=== PATIENT | female | born 1960 | race Caucasian/White ===

== ENCOUNTER 2019-01-19 21:26 | Inpatient (IN) | payer MEDICARE ==
[~2019-01-19] VITALS: Ht 165.1 cm; Wt 86.7 kg
[2019-01-19] MEDS ORDERED: NALOXONE 0.4 MG/ML VIAL. ONE (21:43)
[2019-01-19 22:02] LABS: BASO % 0 % (0-3); EOS # 0.5 x10^3/uL (0.0-0.7); EOS % 4 % (0-3); HEMATOCRIT 39.3 % (36.0-47.0); HEMOGLOBIN 13.3 g/dL (12.0-15.5); LYMPH # 1.4 x10^3/uL (1.0-4.8); LYMPH % 12 % (24-48); MEAN CORPUSCULAR HEMOGLOBIN 31 pg (25-35); MEAN CORPUSCULAR HGB CONC 34 g/dL (31-37); MEAN CORPUSCULAR VOLUME 91 fL (79-100); MONO # 1.2 x10^3/uL (0.0-1.1); MONO % 10 % (0-9); NEUT # 8.4 x10^3uL (1.8-7.7); NEUT % 74 % (31-73); PLATELET COUNT 284 x10^3/uL (140-400); RED BLOOD COUNT 4.33 x10^6/uL (3.50-5.40); RED CELL DISTRIBUTION WIDTH 13.2 % (11.5-14.5); WHITE BLOOD COUNT 11.4 x10^3/uL (4.0-11.0)
[2019-01-19 22:14] LABS: CALCIUM 9.2 mg/dL (8.5-10.1); CREATININE 1.1 mg/dL (0.6-1.0); GFR 50.7; POTASSIUM 3.4 mmol/L (3.5-5.1)
[2019-01-19 22:19] LABS: ALBUMIN 3.5 g/dL (3.4-5.0); ALBUMIN/GLOBULIN RATIO 0.8 (1.0-1.7); TOTAL BILIRUBIN 0.3 mg/dL (0.2-1.0); TOTAL PROTEIN 7.8 g/dL (6.4-8.2)
[2019-01-19] MEDS ORDERED: ONDANSETRON PF 4 MG/2 ML VIAL. IV ONE (22:30)
--- NOTE | 2019-01-19 22:43 | RAD ---
CT scan of the head without contrast 01/19/2019 Clinical History: Fall with head injury. Technique: Unenhanced, contiguous, 5 mm axial sections were obtained through the head. One or more of the following individualized dose reduction techniques were utilized for this study: 1. Automated exposure control. 2. Adjustment of the mA and/or kV according to patient size. 3. Use of iterative reconstruction technique. Findings: Comparison study is dated 12/23/2009. There is generalized parenchymal atrophy. Areas of decreased attenuation are seen within the periventricular and subcortical white matter of both cerebral hemispheres consistent with areas of small vessel ischemic disease. No acute parenchymal abnormality is seen. No extra-axial fluid collection is noted. No skull fracture is seen. Impression: No acute intracranial abnormality is seen. CT scan of the cervical spine without contrast 01/19/2019 Clinical history: Fall with neck injury. Technique: Unenhanced, contiguous, 0.625 mm axial sections were obtained through the cervical spine. Axial, coronal and sagittal reconstructed images were obtained. One or more of the following individualized dose reduction techniques were utilized for this study: 1. Automated exposure control. 2. Adjustment of the mA and/or kV according to patient size. 3. Use of iterative reconstruction technique. Findings: Sagittal and coronal reconstructed images demonstrate minimal lateral curvature of the cervical spine, convex to the left. There is slight reversal of normal cervical lordosis. Degenerative changes consisting of disc space narrowing, vertebral endplate sclerosis and mild to moderate anterior and posterior vertebral body osteophyte formation are seen involving the C3-4, C4-5, C5-6 and C6-7 disc spaces. No fracture or subluxation of the cervical vertebrae is seen. Degenerative changes are seen involving the uncovertebral and facet joints throughout the mid and lower cervical disc spaces. Impression: No fracture or subluxation of the cervical vertebra is identified. Electronically signed by: Ever Moe MD (01/19/2019 10:40 PM) [facility]
[2019-01-19 23:10] LABS: ACETAMIN < 2 mcg/ml (10-30); SALIC < 2.8 mg/dL (2.8-20.0)
[2019-01-19] MEDS ORDERED: IV 1/2 NORMAL SALINE 1,000 ML IV ONE (23:15)
--- NOTE | 2019-01-19 23:28 | RAD ---
AP portable chest radiograph 01/19/2019 Clinical History: Shortness of breath. An AP supine portable digital radiograph of the chest was obtained. Comparison study is dated 09/28/2005. The cardiac silhouette is mildly enlarged. The thoracic aorta is mildly tortuous. Prominence of the pulmonary vasculature is seen suggesting mild to moderate CHF. No pneumothorax or pleural effusion is noted. Degenerative changes are seen involving the thoracic spine and both shoulders. Impression: Findings suggesting mild to moderate CHF. Electronically signed by: Ever Moe MD (01/19/2019 11:25 PM) [facility]
[2019-01-20] VITALS (9 sets, daily range): BP systolic 96–140; BP diastolic 48–68
[2019-01-20] MEDS ORDERED: NALOXONE 0.4 MG/ML VIAL. ONE (00:40)
[2019-01-20] MEDS ORDERED: NALOXONE 0.4 MG/ML VIAL. IV ONE ×2 (01:00→03:00)
[2019-01-20] MEDS ORDERED: ONDANSETRON PF 4 MG/2 ML VIAL. IV ONE (01:15)
[2019-01-20 01:21] LABS: BILIRUBIN,URINE NEGATIVE (NEG); CLARITY,URINE CLEAR; COLOR,URINE YELLOW; NITRITE,URINE NEGATIVE (NEG); PROTEIN,URINE 30 mg/dL (NEG-TRACE); UROBILINOGEN,URINE 0.2 mg/dL (0.2 mg/dL)
--- NOTE | 2019-01-20 01:28 | PHYS DOC ---
Past Medical History Past Medical History: Anxiety, Arrhythmia, CAD Past Surgical History: Appendectomy, Tonsillectomy Alcohol Use: None Drug Use: None Adult General Chief Complaint Chief Complaint: ALTERED MENTAL STATUS HPI HPI Patient is a 58 year old female brought in by ambulance after a fall in her front yard she took some morphine from her husbands regimen she could not get up she was unable to do so she was noted to have pinpoint pupils as well as slow breathing. Further history is limited patient denies suicidality denies any chest pain at this time Review of Systems Review of Systems [facility] by [facility] Current Medications Current Medications Current Medications Medications (Trade) Dose Ordered Sig/Jeri Start Time Stop Time Status Last Admin Dose Admin Naloxone HCl (Narcan) 0.4 mg STK-MED ONCE 01/19/19 21:43 01/19/19 21:44 DC Ondansetron HCl (Zofran) 4 mg 1X ONCE 01/19/19 22:30 01/19/19 22:31 DC 01/19/19 23:07 4 MG Allergies Allergies Allergies Coded Allergies Type Severity Reaction Last Updated Verified gluten Allergy Intermediate 01/19/19 No iodine Allergy Intermediate 01/19/19 No Physical Exam Physical Exam Constitutional: Well developed, well nourished, overall well-appearing HENT: Normocephalic, atraumatic, bilateral external ears normal, oropharynx moist, no oral exudates, nose normal. [] Eyes: Pupils are pinpoint bilaterallye, no stridor. [] Cardiovascular:Heart rate regular rhythm, no murmur [] Lungs & Thorax: Patient has bradypnea no obvious wheezing or rhonchi Abdomen: Bowel sounds normal, soft, no tenderness, no masses, no pulsatile masses. [] Skin: Warm, diaphoretic, no erythema, no rash. [] Extremities: No tenderness, no cyanosis, no clubbing, ROM intact, no edema. [] Neurologic: Alert and oriented X 2, normal motor function, normal sensory function, no focal deficits noted. []Initially was eyes open to voice however after Narcan became alert and oriented temporarily Psychologic: Mood is anxious denies suicidality. [] Current Patient Data Vital Signs Vital Signs Date Time Temp Pulse Resp B/P (MAP) Pulse Ox O2 Delivery O2 Flow Rate FiO2 01/19/19 21:26 98.7 86 8 113/59 (77) 97 Room Air 98.7 Lab Values Laboratory Tests Test 01/19/19 21:54 White Blood Count 11.4 x10^3/uL (4.0-11.0) H Red Blood Count 4.33 x10^6/uL (3.50-5.40) Hemoglobin 13.3 g/dL (12.0-15.5) Hematocrit 39.3 % (36.0-47.0) Mean Corpuscular Volume 91 fL (79-100) Mean Corpuscular Hemoglobin 31 pg (25-35) Mean Corpuscular Hemoglobin Concent 34 g/dL (31-37) Red Cell Distribution Width 13.2 % (11.5-14.5) Platelet Count 284 x10^3/uL (140-400) Neutrophils (%) (Auto) 74 % (31-73) H Lymphocytes (%) (Auto) 12 % (24-48) L Monocytes (%) (Auto) 10 % (0-9) H Eosinophils (%) (Auto) 4 % (0-3) H Basophils (%) (Auto) 0 % (0-3) Neutrophils # (Auto) 8.4 x10^3uL (1.8-7.7) H Lymphocytes # (Auto) 1.4 x10^3/uL (1.0-4.8) Monocytes # (Auto) 1.2 x10^3/uL (0.0-1.1) H Eosinophils # (Auto) 0.5 x10^3/uL (0.0-0.7) Basophils # (Auto) 0.0 x10^3/uL (0.0-0.2) Sodium Level 142 mmol/L (136-145) Potassium Level 3.4 mmol/L (3.5-5.1) L Chloride Level 101 mmol/L (98-107) Carbon Dioxide Level 30 mmol/L (21-32) Anion Gap 11 (6-14) Blood Urea Nitrogen 14 mg/dL (7-20) Creatinine 1.1 mg/dL (0.6-1.0) H Estimated GFR (Cockcroft-Gault) 50.7 BUN/Creatinine Ratio 13 (6-20) Glucose Level 119 mg/dL (70-99) H Calcium Level 9.2 mg/dL (8.5-10.1) Total Bilirubin 0.3 mg/dL (0.2-1.0) Aspartate Amino Transferase (AST) 44 U/L (15-37) H Alanine Aminotransferase (ALT) 54 U/L (14-59) Alkaline Phosphatase 112 U/L (46-116) Troponin I Quantitative < 0.017 ng/mL (0.000-0.055) EW-Ecu-U-Type Natriuretic Peptide 74 pg/mL (0-124) Total Protein 7.8 g/dL (6.4-8.2) Albumin 3.5 g/dL (3.4-5.0) Albumin/Globulin Ratio 0.8 (1.0-1.7) L Salicylates Level < 2.8 mg/dL (2.8-20.0) L Salicylate Last Dose Date Unk Salicylate Last Dose Time Unk Acetaminophen Level < 2 mcg/ml (10-30) L Acetaminophen Last Dose Date Unk Acetaminophen Last Dose Time Unk Ethyl Alcohol Level < 3 mg/dL (0-10) Laboratory Tests 01/19/19 21:54 Laboratory Tests 01/19/19 21:54 EKG EKG []Normal sinus rhythm rate of 83 no acute ischemic changes noted QTC was prolonged at 526. Radiology/Procedures Radiology/Procedures CT scan of the head without contrast 01/19/2019 Clinical History: Fall with head injury. Technique: Unenhanced, contiguous, 5 mm axial sections were obtained through the head. One or more of the following individualized dose reduction techniques were utilized for this study: 1. Automated exposure control. 2. Adjustment of the mA and/or kV according to patient size. 3. Use of iterative reconstruction technique. Findings: Comparison study is dated 12/23/2009. There is generalized parenchymal atrophy. Areas of decreased attenuation are seen within the periventricular and subcortical white matter of both cerebral hemispheres consistent with areas of small vessel ischemic disease. No acute parenchymal abnormality is seen. No extra-axial fluid collection is noted. No skull fracture is seen. Impression: No acute intracranial abnormality is seen. CT scan of the cervical spine without contrast 01/19/2019 Clinical history: Fall with neck injury. Technique: Unenhanced, contiguous, 0.625 mm axial sections were obtained through the cervical spine. Axial, coronal and sagittal reconstructed images were obtained. One or more of the following individualized dose reduction techniques were utilized for this study: 1. Automated exposure control. 2. Adjustment of the mA and/or kV according to patient size. 3. Use of iterative reconstruction technique. Findings: Sagittal and coronal reconstructed images demonstrate minimal lateral curvature of the cervical spine, convex to the left. There is slight reversal of normal cervical lordosis. Degenerative changes consisting of disc space narrowing, vertebral endplate sclerosis and mild to moderate anterior and posterior vertebral body osteophyte formation are seen involving the C3-4, C4-5, C5-6 and C6-7 disc spaces. No fracture or subluxation of the cervical vertebrae is seen. Degenerative changes are seen involving the uncovertebral and facet joints throughout the mid and lower cervical disc spaces. Impression: No fracture or subluxation of the cervical vertebra is identified. Electronically signed by: Ever Moe MD (01/19/2019 10:40 PM) [facility] DICTATED and SIGNED BY: EVER MOE MD DATE: 01/19/19 2753 [] Impressions: The cardiac silhouette is mildly enlarged. The thoracic aorta is mildly tortuous. Prominence of the pulmonary vasculature is seen suggesting mild to moderate CHF. No pneumothorax or pleural effusion is noted. Degenerative changes are seen involving the thoracic spine and both shoulders. Impression: Findings suggesting mild to moderate CHF. Electronically signed by: Ever Moe MD (01/19/2019 11:25 PM) [facility] DICTATED and SIGNED BY: EVER MOE MD DATE: 01/19/19 8012 Course & Med Decision Making Course & Med Decision Making Pertinent Labs and Imaging studies reviewed. (See chart for details) [] Critical care time was 45 minutes exclusive of procedures. pt has 58 yo f who took morphine (from ) and valium (possibly as many as ten). fell in the front yard, couldnt get up head ct neg acute [place] p.m. I did talk to Dr. Ravi for admission for monitoring of narcotic overdose and possible benzodiazepine overdose. Patient denies suicidality but I did order a pat consult for the morning for drug abuse Plan the emergency room patient was given Narcan initially had a respiratory rate of about 6 she woke up after this she was awake and talking and doing pretty well and then after about 90 minutes or so I Called back into the room around 1245 approximately patient was having hypoxia and again bradypnea we did give another dose of Narcan she did wake up further we did try a nasal trumpet but she pulled that right now she was following commands she was mildly agitated we did place in soft restraints because she pulled on IV at one point. Saturating well on nasal cannula oxygen after Narcan we did place a Narcan drip transfer patient to ICU as of 1:30 AM. Noted the QT interval prolongation this is of unclear significance but I have ordered a dose of 1 g of IV magnesium at this time. Dragon Disclaimer Dragon Disclaimer This electronic medical record was generated, in whole or in part, using a voice recognition dictation system. Departure Departure Impression: Primary Impression: Narcotic overdose Disposition: ADMITTED INPATIENT Admitting Physician: Other Condition: CRITICAL Referrals: NO PCP (PCP) LINDA LARSEN MD January 20, 2019 01:28
[2019-01-20] MEDS ORDERED: NALOXONE 2 MG in IV DEXTROSE 5% 500 ML IV ONE (01:30)
[2019-01-20 01:31] LABS: BACTERIA,URINE 0 /HPF (0-FEW); SQUAMOUS EPITHELIAL CELL,UR FEW /LPF; WBC,URINE RARE /HPF (0-4)
[2019-01-20 01:32] LABS: AMORPHOUS SEDIMENT,UR PRESENT /HPF; HYALINE CASTS, URINE MODERATE /HPF
[2019-01-20 01:51] LABS: BARBITURATES NEG (NEG); BENZODIAZEPINES POS (NEG); CANNABINOIDS NEG (NEG); COCAINE NEG (NEG); METHADONE NEG (NEG); OPIATES POS (NEG); PHENCYCLIDINE NEG (NEG)
[2019-01-20 01:52] LABS: AMPHETAMINE/METHAMPHETAMINE NEG (NEG)
[2019-01-20] MEDS ORDERED: MAGNESIUM SULFATE 1GM 100 ML IV ONE (02:00)
--- NOTE | 2019-01-20 02:41 | NUR ---
The patient, PO NASH, 58 y/o, F admitted by CAMILLE MALCOLM MD, was given written information regarding hospital policies, unit procedures and contact persons. Valuables were checked and left with her.
[2019-01-20] MEDS ORDERED: HYDR50TA6 PO (03:00)
[2019-01-20] MEDS ORDERED: VALIUM10 MG PO (03:00)
[2019-01-20] MEDS ORDERED: ASPI-612 PO (03:00)
[2019-01-20] MEDS ORDERED: ATOR20TA58 PO (03:00)
[2019-01-20] MEDS ORDERED: CITA40TA5 PO (03:00)
[2019-01-20] MEDS ORDERED: HYDR-2759 PO (03:00)
--- NOTE | 2019-01-20 06:41 | EKG ---
[facility] [address] [place] [address] Test Date: 2019-01-19 Test Time: 21:38:07 Pat Name: PO NASH Department: Room: 102 1 Gender: F [employer]: : 1960 Requested By: LINDA LARSEN Order Number: [id number] Reading MD: Maurisio Patel Measurements Intervals [place] Rate: 83 P: 42 NE: 138 QRS: 43 QRSD: 92 T: 25 QT: 442 QTc: 526 Interpretive Statements SINUS RHYTHM PROLONGED QT Electronically Signed On 02-13-2019 11:43:45 CDT by Maurisio Patel
[2019-01-20] MEDS ORDERED: ACETAMINOPHEN 325 MG TABLET. PO PRN (09:00)
--- NOTE | 2019-01-20 11:01 | NUR ---
SS following for discharge planning. SS reviewed pt chart. Pt is from home with spouse. PAT team consulted by ICU due to issues with narcotic abuse and history. SS spoke with Contreras from the PAT team. Contreras reported that he met with pt and discussed addiction and offered services. Pt declined services and stated that she sees psychiatrist, Luis Kenney, in the community. Pt requesting to discharge to home with her spouse via cab at 1130. Physician notified.
--- NOTE | 2019-01-20 11:10 | NUR ---
Discharge discussed with patient. PAT team visited with patient and provided resources to patient and . Transport set up for 1130. Patient aware of resources available in community.
--- NOTE | 2019-01-20 14:01 | SSS ---
ADMIT DATE: 01/20/2019 CHIEF COMPLAINT: Mental status change and weakness, narcotic overdose. HISTORY OF PRESENT ILLNESS: The patient is a pleasant middle-aged white female who we just admitted this morning because she took her 's medicine. He takes a lot of hydrocodone and some morphine as well. He is actually in the ICU as well for similar symptoms. She was admitted overnight for observation. This morning, she wants to leave against medical advice. I did go ahead and see her and examined her in the ICU. I suspect she is stable enough to be discharged. We are going to go ahead and discharge her and have her see a doctor in a week. DISPOSITION: Home. ACTIVITY: As tolerated. DIET: Low sodium. MEDICATIONS: Please see the MRAD. TOTAL TIME: 32 minutes. AUDELIA STAFFORD DO DR: OLVIN/brad JOB#: [id number] / [id number]
== END 2019-01-20 11:46 | disposition home or self-care (01) | DRG 917 ==
LOC: ER 21:26 → 6 SOUTH 23:00 → 1 WEST ICU 01-20 02:24
PROVIDERS: ADMIT Internal Medicine; ATTEND Internal Medicine
DX: T40.2X1A Poisoning by other opioids, accidental (unintentional), initial encounter (principal); G92 Toxic encephalopathy; I25.10 Atherosclerotic heart disease of native coronary artery without angina pectoris; F41.9 Anxiety disorder, unspecified; W18.39XA Other fall on same level, initial encounter; Z90.49 Acquired absence of other specified parts of digestive tract; Z88.8 Allergy status to other drugs, medicaments and biological substances; Z91.041 Radiographic dye allergy status; Y92.007 Garden or yard of unspecified non-institutional (private) residence as the place of occurrence of the external cause; Y93.89 Activity, other specified; Y99.8 Other external cause status
CPT/HCPCS: 36415; 70450; 71045; 72125; 80053; 80307; 80329; 81001; 82962; 83880; 84484; 85025; 87641; 93005; 96365; 96375; G0480; J2310; J2405; J3475; 99291-25

== ENCOUNTER → 2019-08-25 | Outpatient (CLI) | payer MEDICARE ==
[2019-01-20 09:46] VITALS: BP 114/57
[~2019-08-25] MED LIST: ASPI-612 PO; ATOR20TA58 PO; CITA40TA5 PO; HYDR-2759 PO; HYDR50TA6 PO; VALIUM10 MG PO
--- NOTE | 2019-08-25 14:57 | KCIC ---
EXAM: Lumbar spine, 5 views. HISTORY: Pain. COMPARISON: None. FINDINGS: 5 views of the lumbar spine are obtained. There is mild lumbar dextroscoliosis. There is grade 1 anterolisthesis of L5 on S1. There is slight retrolisthesis of L4 and L5. There is degenerative endplate remodeling with disc space narrowing and facet arthropathy at L4-L5. There is also facet arthropathy at L5-S1. IMPRESSION: 1. Degenerative change primarily at L4-L5. 2. No acute osseous finding. Electronically signed by: Marisa Garcia MD (08/25/2019 2:54 PM) [place] [id number]
== END | disposition home or self-care (01) ==
LOC: KCIC 11:27
PROVIDERS: ATTEND Family Medicine
DX: M47.26 Other spondylosis with radiculopathy, lumbar region (principal); M43.17 Spondylolisthesis, lumbosacral region; M48.061 Spinal stenosis, lumbar region without neurogenic claudication; M12.88 Other specific arthropathies, not elsewhere classified, other specified site
CPT/HCPCS: 72110

== ENCOUNTER → 2020-02-25 | Outpatient (CLI) | payer MEDICARE ==
[2019-01-20 09:46] VITALS: BP 114/57
--- NOTE | 2020-02-25 15:23 | KCIC ---
EXAM: Right hip, 2 views. HISTORY: Pain. COMPARISON: None. FINDINGS: 2 views of the right hip are obtained. There is no fracture, dislocation or subluxation. There is mild marginal acetabular and femoral head spurring. IMPRESSION: No acute osseous finding. Electronically signed by: Marisa Garcia MD (02/25/2020 3:21 PM) [facility]
== END | disposition home or self-care (01) ==
LOC: KCIC 13:59
PROVIDERS: ATTEND Family Medicine
DX: M77.31 Calcaneal spur, right foot (principal); M25.551 Pain in right hip
CPT/HCPCS: 73502

== ENCOUNTER → 2020-03-02 | Outpatient (CLI) | payer MEDICARE ==
[2019-01-20 09:46] VITALS: BP 114/57
[~2020-03-02] MED LIST changes: -ASPI-612 PO; +ASPI-886 PO
--- NOTE | 2020-03-02 11:43 | KCIC ---
MRI Lumbar Spine without contrast History: Lumbar back pain, radiculopathy, unsteady gait, bilateral lower extremity weakness since July, bilateral hip pain Technique: Multiplanar, multi sequential noncontrast MR imaging was performed of the lumbar spine. Comparison: None Findings: Lumbar vertebral body stature is overall maintained. There is minimal grade 1 anterior spondylolisthesis at L5-S1. There is hemangioma of the posterior T12 vertebral body. There is an adjacent smaller 0.8 cm focus of marrow signal change slightly hyperintense on all sequences. There is moderate to severe L4-5 degenerative disc disease, minimally L2-3, L3-4, and L5-S1. There is T2 and T1 hyperintense lesion posterior to the visualized left kidney not fully evaluated at least 6.4 cm transverse by 4.8 cm AP, apparently internal vessels present. 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 There is retroaortic left renal vein. L1-L2: This level was not included on the axial images. L2-L3: There is a shallow posterior protrusion greatest centrally. There is mild facet degenerative change and buckling of the ligamentum flavum. Neural foramina and spinal canal are adequate. L3-L4: Neural foramina and spinal canal overall adequate. There is minimal facet degenerative change. L4-L5: There is minimal disc osteophyte complex and bulge. There is minimal facet degenerative change and buckling of the ligamentum flavum. There is qxne-[id number] narrowing of the far right lateral recess with contact of the descending right L5 nerve root, mild narrowing of the far lateral recess with degree of contact of the ventral surface descending left L5 nerve root. There is minimal narrowing of the right neural foramen, left neural foramen adequate. L5-S1: There is moderate facet degenerative change, some minimal fluid in the facet articulations bilaterally. There is minimal narrowing of the far lateral recess from posteriorly. Neural foramina are overall adequate. Impression: 1. There is a mass lesion along the posterior aspect of left kidney which probably contains internal fat although not fully characterized on this exam, better evaluated with CT. 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 2. There is multilevel lumbar degenerative disc disease greatest at L4-5. 3. There is hnea-pj-cwymjubg right and mild left lateral recess stenosis at L4-5 as described. There is mild narrowing of the right L4-5 neural foramen. 4. There is a small focus of nonspecific signal change of the posterior right T12 vertebral body. Atypical hemangioma is considered most likely, adjacent more typical appearing hemangioma present. Electronically signed by: Shane Hines MD (03/02/2020 11:40 AM) [id number]
== END | disposition home or self-care (01) ==
LOC: KCIC MRI 08:40
PROVIDERS: ATTEND Family Medicine
DX: M51.17 Intervertebral disc disorders with radiculopathy, lumbosacral region (principal); M48.07 Spinal stenosis, lumbosacral region; M43.17 Spondylolisthesis, lumbosacral region; D18.09 Hemangioma of other sites; M25.78 Osteophyte, vertebrae
CPT/HCPCS: 72148

== ENCOUNTER → 2020-03-18 | Outpatient (CLI) | payer MEDICARE ==
[2019-01-20 09:46] VITALS: BP 114/57
[~2020-03-18] MED LIST changes: +ASPI-612 PO; -ASPI-886 PO; +CONTRAST GIVEN. MC PRN; +IOHEXOL 240 MG/ML 50ML VIAL. PO ONE; +IOHEXOL 300 MG/ML 100ML VIAL. IV ONE
--- NOTE | 2020-03-18 12:22 | KCIC ---
CT scan abdomen and pelvis without contrast 03/18/2020 CLINICAL HISTORY: Mass seen posterior to the left kidney on recent MRI of the lumbar spine. CT was recommended for further evaluation. TECHNIQUE: After the oral administration contrast only, contiguous, 5 mm axial sections were obtained through abdomen and pelvis. One or more of the following individualized dose reduction techniques were utilized for this study: 1. Automated exposure control. 2. Adjustment of the mA and/or kV according to patient size. 3. Use of iterative reconstruction technique. FINDINGS: Comparison is made to patient's MRI of the lumbar spine dated 03/02/2020. Images through the lung bases demonstrate minimal dependent subsegmental atelectasis bilaterally. The liver, spleen, pancreas, adrenal glands and right kidney are within normal limits. A somewhat oval-shaped heterogeneous mass is seen arising from the superior/midportion of the left kidney extending superiorly and posteriorly. This mass measures 10 x 7.3 x 7.7 cm in craniocaudal, AP and transverse dimensions. This corresponds to the abnormality seen on patient's CT scan. This mass has multiple areas of fat within it. The largest fat component measures 7.3 cm in size. 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 Atherosclerotic calcification of the abdominal aorta is seen. The abdominal aorta tapers normally. The gallbladder is contracted. No free fluid or free air is seen within the abdomen. There is no evidence of bowel obstruction. No retroperitoneal lymphadenopathy is seen. Images through the pelvis demonstrate the urinary bladder to be slightly contracted. Calcifications are seen within the pelvis consistent with phleboliths. No adnexal mass is seen. No free fluid is noted. No pelvic or inguinal lymphadenopathy is seen. Very mild S-shaped curvature of the thoracolumbar spine is noted. Degenerative changes are seen involving the thoracic and throughout the lumbar spine along with both hips. IMPRESSION: 10 cm fat-containing mass is seen involving the left kidney which corresponds to the abnormality seen on the patients MRI scan. 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 Electronically signed by: Ever Moe MD (03/18/2020 12:19 PM) [id number]
== END | disposition home or self-care (01) ==
LOC: KCIC CT 08:07
PROVIDERS: ATTEND Family Medicine
DX: N28.89 Other specified disorders of kidney and ureter (principal); K82.0 Obstruction of gallbladder; I70.0 Atherosclerosis of aorta; J98.11 Atelectasis
CPT/HCPCS: 74176; Q9966

== ENCOUNTER 2020-06-23 18:49 | Emergency (ER) | payer MEDICARE ==
[~2020-06-23] VITALS: Ht 165.1 cm; Wt 57.7 kg
[~2020-06-23 18:49] MED LIST changes: -ASPI-612 PO; +ASPI-886 PO; -CONTRAST GIVEN. MC PRN; -IOHEXOL 240 MG/ML 50ML VIAL. PO ONE; -IOHEXOL 300 MG/ML 100ML VIAL. IV ONE
--- NOTE | 2020-06-23 19:55 | PHYS DOC ---
Past Medical History Past Medical History: Anxiety, Arrhythmia, CAD Past Surgical History: Appendectomy, Tonsillectomy Smoking Status: Never Smoker Alcohol Use: None Drug Use: None General Adult EDM: Chief Complaint: POST-OP PROBLEM HPI: HPI: Patient is a 60 year old female who is 3 weeks status post partial left nephrectomy for AML presents with increased pain over the last day. Patient ran out of pain medicine 2 days ago and her physician called her in some but the pharmacy did not have any so she comes here for evaluation. Patient describes moderate left side abdominal pain with radiation to the back but similar to the pain she was having postop. Patient had some diarrhea but no fever, chills cough or nausea or vomiting. Symptoms are worse with palpation or movement. Review of Systems: Review of Systems: Constitutional: Denies fever or chills. [] Eyes: Denies change in visual acuity. [] HENT: Denies nasal congestion or sore throat. [] Respiratory: Denies cough or shortness of breath. [] Cardiovascular: Denies chest pain or edema. [] GI: Complains abdominal pain but no nausea vomiting or blood in stools she has had some diarrhea : Denies dysuria. [] Musculoskeletal: Complains of back pain Integument: Denies rash. [] Neurologic: Denies headache, focal weakness or sensory changes. [] Endocrine: Denies polyuria or polydipsia. [] Lymphatic: Denies swollen glands. [] Psychiatric: Denies depression or anxiety. [] Heart Score: Risk Factors: Risk Factors: DM, Current or recent (<one month) smoker, HTN, HLP, family history of CAD, obesity. Risk Scores: Score 0 - 3: 2.5% MACE over next 6 weeks - Discharge Home Score 4 - 6: 20.3% MACE over next 6 weeks - Admit for Clinical Observation Score 7 - 10: 72.7% MACE over next 6 weeks - Early Invasive Strategies Current Medications: Current Medications Medications (Trade) Dose Ordered Sig/Jeri Start Time Stop Time Status Last Admin Dose Admin Morphine Sulfate (Morphine Sulfate) 4 mg 1X ONCE 06/23/20 20:00 06/23/20 20:01 UNV Ondansetron HCl (Zofran) 4 mg 1X ONCE 06/23/20 20:00 06/23/20 20:01 UNV Sodium Chloride 1,000 ml @ 1,000 mls/hr 1X ONCE 10/15/20 20:00 06/23/20 20:59 UNV Allergies: Allergies: Allergies Coded Allergies Type Severity Reaction Last Updated Verified Iodine and Iodide Containing Produc Allergy Severe ANAPHYLAXIS 03/18/20 Yes gluten Allergy Intermediate 01/19/19 No Physical Exam: PE: Constitutional: Well developed, well nourished, no acute distress, non-toxic appearance. [] HENT: Normocephalic, atraumatic, bilateral external ears normal, no trismus, nose normal. [] Eyes: PERRLA, EOMI, conjunctiva normal, no discharge. [] Neck: Normal range of motion, no tenderness, supple, no stridor. [] Cardiovascular:Heart rate regular rhythm, peripheral pulses are intact cap refill is brisk Lungs & Thorax: Bilateral breath sounds clear, no respiratory distress Abdomen: Surgical incision is clean dry and intact without signs of infection there is mild diffuse left-sided tenderness without guarding rebound no masses no pulsatile masses Skin: Warm, dry, no erythema, no rash. [] Incision is clean dry and intact without signs of infection Back: No tenderness, no CVA tenderness. [] Extremities: No tenderness, no cyanosis, no clubbing, ROM intact, no edema. [] Neurologic: Alert and oriented X 3, normal motor function, normal sensory fu nction, no focal deficits noted. [] Psychologic: Affect normal, judgement normal, mood normal. [] Current Patient Data: Labs: Laboratory Tests Test 06/23/20 20:14 06/23/20 21:06 White Blood Count 8.0 x10^3/uL Red Blood Count 3.24 x10^6/uL Hemoglobin 10.2 g/dL Hematocrit 30.2 % Mean Corpuscular Volume 93 fL Mean Corpuscular Hemoglobin 32 pg Mean Corpuscular Hemoglobin Concent 34 g/dL Red Cell Distribution Width 13.9 % Platelet Count 380 x10^3/uL Neutrophils (%) (Auto) 66 % Lymphocytes (%) (Auto) 22 % Monocytes (%) (Auto) 10 % Eosinophils (%) (Auto) 2 % Basophils (%) (Auto) 0 % Neutrophils # (Auto) 5.2 x10^3/uL Lymphocytes # (Auto) 1.7 x10^3/uL Monocytes # (Auto) 0.8 x10^3/uL Eosinophils # (Auto) 0.2 x10^3/uL Basophils # (Auto) 0.0 x10^3/uL Sodium Level 141 mmol/L Potassium Level 3.3 mmol/L Chloride Level 104 mmol/L Carbon Dioxide Level 32 mmol/L Anion Gap 5 Blood Urea Nitrogen 6 mg/dL Creatinine 0.9 mg/dL Estimated GFR (Cockcroft-Gault) 63.4 BUN/Creatinine Ratio 7 Glucose Level 81 mg/dL Lactic Acid Level 0.8 mmol/L Calcium Level 9.5 mg/dL Total Bilirubin 0.2 mg/dL Aspartate Amino Transf (AST/SGOT) 16 U/L Alanine Aminotransferase (ALT/SGPT) 21 U/L Alkaline Phosphatase 88 U/L Total Protein 7.4 g/dL Albumin 3.3 g/dL Albumin/Globulin Ratio 0.8 Lipase 123 U/L Urine Collection Type U cath Urine Color Yellow Urine Clarity Clear Urine pH 6.0 Urine Specific [place] <=1.005 Urine Protein Negative mg/dL Urine Glucose (UA) Negative mg/dL Urine Ketones (Stick) Negative mg/dL Urine Blood Small Urine Nitrite Negative Urine Bilirubin Negative Urine Urobilinogen Dipstick 0.2 mg/dL Urine Leukocyte Esterase Large Urine RBC 1-2 /HPF Urine WBC 20-40 /HPF Urine Squamous Epithelial Cells Few /LPF Urine Amorphous Sediment Present /HPF Urine Bacteria Few /HPF Urine Mucus Slight /LPF Current Medications Medications (Trade) Dose Ordered Sig/Jeri Route PRN Reason Start Time Stop Time Status Last Admin Dose Admin Ondansetron HCl (Zofran) 4 mg 1X ONCE IVP 06/23/20 20:30 06/23/20 20:46 DC 06/23/20 20:34 Morphine Sulfate (Morphine Sulfate) 4 mg 1X ONCE IV 06/23/20 20:30 06/23/20 20:46 DC 06/23/20 20:35 Sodium Chloride 1,000 ml @ 1,000 mls/hr 1X ONCE IV 06/23/20 20:00 06/23/20 20:59 DC 06/23/20 20:33 Vital Signs: Vital Signs Date Time Temp Pulse Resp B/P (MAP) Pulse Ox O2 Delivery O2 Flow Rate FiO2 06/23/20 20:35 16 98 06/23/20 19:50 99.9 65 20 176/77 (110) 99 Room Air 99.9 EKG: EKG: [] Radiology/Procedures: Radiology/Procedures: [][facility] [address] [place] [address] IMAGING REPORT Signed PATIENT: PO NASH AACCOUNT: [id number] : 1960 LOCATION: ER AGE: 60 SEX: F EXAM STATUS: REG ER ORD. PHYSICIAN: CECELIA ACKERMAN MD REASON: left abd pain, 3 weeks s/p partial nephrectomy PROCEDURE: CT ABDOMEN PELVIS WO CONTRAST EXAM: CT ABDOMEN/PELVIS WITHOUT CONTRAST. HISTORY: Left abdominal pain. Recent partial nephrectomy. TECHNIQUE: Computed tomography of the abdomen and pelvis was performed without intravenous contrast. One or more of the following individualized dose reduction techniques were utilized for this examination: 1. Automated exposure control. 2. Adjustment of the mA and/or kV according to patient size. 3. Use of iterative reconstruction technique. COMPARISON: 03/18/2020. FINDINGS: Lung windows through the visualized portions of the bases reveal no abnormality. Bone windows reveal no suspicious lesions. Wall thickening throughout the colon is consistent with colitis. There is no small bowel obstruction. There is no evidence of appendicitis. There is mild bladder wall thickening. The liver, gallbladder, pancreas, and adrenal glands are unremarkable. There are calcified granulomas in the spleen. Note is made of a retroaortic left renal vein. There are no pathologically enlarged lymph nodes. Changes of left partial nephrectomy are noted. 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 The right kidney is unremarkable. Mild stranding in the left upper quadrant is likely postprocedural. There is no drainable collection. IMPRESSION: 1. Findings consistent with diffuse colitis. Infectious etiologies are favored in this distribution. 2. Mild postprocedural changes in the left partial nephrectomy bed. No drainable collection. 3. Mild bladder wall thickening. Correlate with urinalysis. Electronically signed by: Dong Tejeda MD (06/23/2020 8:36 PM) [facility] DICTATED and SIGNED BY: SESAR TEJEDA MD DATE: 06/23/202035 Course & Med Decision Making: Course & Med Decision Making Pertinent Labs and Imaging studies reviewed. (See chart for details) [] 60-year-old female presents with abdominal pain approximately 3 weeks after partial nephrectomy. Patient has also had diarrhea. CT does not reveal any surgical complication but does show diffuse colitis. I have concerns that she may have C. difficile most likely receive antibiotics in the perioperative period. I offered the patient admission for IV antibiotics and hydration and pain control, patient has full mental capacity and declines these. Patient will be sent home on antibiotics to cover colitis as well as C. difficile. Patient was given pain meds and nausea medicine as well. Discussed with patient return precautions such as increasing pain fever diarrhea. Patient vocalized understanding and will return if any symptoms occur. Note initial vital signs the patient's initial temperature was 99.0 not 99.9 Dragon Disclaimer: Dragon Disclaimer: This electronic medical record was generated, in whole or in part, using a voice recognition dictation system. Departure Departure Impression: Primary Impression: Colitis Additional Impression: Abdominal pain Disposition: 01 DC HOME SELF CARE/HOMELESS Condition: STABLE Referrals: CHLOE GONZÁLES MD (PCP) 2-3 days Patient Instructions: Colitis Additional Instructions: EMERGENCY DEPARTMENT GENERAL DISCHARGE INSTRUCTIONS THANK YOU for coming to [facility] Emergency Department (ED) toda y and trusting us with your care. We trust that you had a positive experience in our Emergency Department. If you wish to speak to the department Management you can contact the stitching department supervisor at . YOUR FOLLOW UP INSTRUCTIONS ARE FOLLOWS: Do you have a private doctor? If you do not have a private doctor, please ask for a resource list of physicians or clinics that may be able to assist you with follow up care. The Emergency Physician has interpreted your x-rays. The X-ray specialist will also review them. If there is a change in the findings you will be notified in 48 hours when at all possible. A lab test or lab culture may have been done, your results will be reviewed and you will be notified if you need a change in treatment. ADDITIONAL INSTRUCTIONS AND INFORMATION Your care today has been supervised by a physician who is specially trained in emergency care. Many problems require more than one evaluation for a complete diagnosis and treatment. We recommend that you schedule your follow up appointment as recommended to ensure complete treatment of your illness or injury. If you are unable to obtain follow up care and continue to have a problem, or if your condition worsens we recommend that you return to the ED. We are not able to safely determine your condition over the phone nor are we able to give sound medical advice over the phone. For these safety reasons, if you call for medical advice we will ask you to come to the ED for further evaluation If you have any questions regarding these discharge instructions please call the ED at . SAFETY INFORMATION In the interest of safety, wellness, and injury prevention; we encourage you to wear your seatbelt, if you smoke; quit smoking, and we encourage your family to use protective helmet for bicycling and other sporting events that present an increased risk for head injury. IF YOUR SYMPTOMS WORSEN OR NEW SYMPTOMS DEVELOP, OR YOU HAVE CONCERNS ABOUT YOUR CONDITION; OR IF YOUR CONDITION WORSENS WHILE YOU ARE WAITING FOR YOUR FOLLOW UP APPOINTMENT; EITHER CONTACT YOUR PRIMARY CARE DOCTOR, THE PHYSICIAN WHOSE NAME AND NUMBER YOU WERE GIVEN, OR RETURN TO THE ED IMMEDIATELY. Scripts Hydrocodone/Apap 5-325 (NORCO 5-325 TABLET) 1 Each Tablet 1-2 EACH PO PRN Q6HRS PRN for PAIN, #15 as needed for pain Prov: CECELIA ACKERMAN MD 06/23/20 Ondansetron Hcl (ZOFRAN) 4 Mg Tablet 1 TAB PO PRN Q6-8HRS for nausea, #12 TAB Prov: CECELIA ACKERMAN MD 06/23/20 Metronidazole (FLAGYL) 500 Mg Tablet 1 TAB PO QID, #40 TAB Prov: CECELIA ACKERMAN MD 06/23/20 Ciprofloxacin Hcl (CIPROFLOXACIN HCL) 500 Mg Tablet 1 TAB PO BID, #20 TAB Prov: CECELIA ACKERMAN MD 06/23/20 CECELIA ACKERMAN MD Jun 23, 2020 19:55
[2020-06-23] MEDS ORDERED: IV NORMAL SALINE 1000ML BAG 1,000 ML IV ONE (20:00)
[2020-06-23 20:24] LABS: BASO % 0 % (0-3); EOS # 0.2 x10^3/uL (0.0-0.7); EOS % 2 % (0-3); HEMATOCRIT 30.2 % (36.0-47.0); HEMOGLOBIN 10.2 g/dL (12.0-15.5); LYMPH # 1.7 x10^3/uL (1.0-4.8); LYMPH % 22 % (24-48); MEAN CORPUSCULAR HEMOGLOBIN 32 pg (25-35); MEAN CORPUSCULAR HGB CONC 34 g/dL (31-37); MEAN CORPUSCULAR VOLUME 93 fL (79-100); MONO # 0.8 x10^3/uL (0.0-1.1); MONO % 10 % (0-9); NEUT # 5.2 x10^3/uL (1.8-7.7); NEUT % 66 % (31-73); PLATELET COUNT 380 x10^3/uL (140-400); RED BLOOD COUNT 3.24 x10^6/uL (3.50-5.40); RED CELL DISTRIBUTION WIDTH 13.9 % (11.5-14.5)
[2020-06-23] MEDS ORDERED: MORPHINE SULFATE 4 MG/ML VIAL. IV ONE (20:30)
[2020-06-23] MEDS ORDERED: ONDANSETRON PF 4 MG/2 ML VIAL. IVP ONE (20:30)
[2020-06-23 20:31] LABS: CALCIUM 9.5 mg/dL (8.5-10.1); CREATININE 0.9 mg/dL (0.6-1.0); GFR 63.4; POTASSIUM 3.3 mmol/L (3.5-5.1)
[2020-06-23 20:37] LABS: ALBUMIN 3.3 g/dL (3.4-5.0); ALBUMIN/GLOBULIN RATIO 0.8 (1.0-1.7); TOTAL BILIRUBIN 0.2 mg/dL (0.2-1.0); TOTAL PROTEIN 7.4 g/dL (6.4-8.2)
--- NOTE | 2020-06-23 20:39 | RAD ---
EXAM: CT ABDOMEN/PELVIS WITHOUT CONTRAST. HISTORY: Left abdominal pain. Recent partial nephrectomy. TECHNIQUE: Computed tomography of the abdomen and pelvis was performed without intravenous contrast. One or more of the following individualized dose reduction techniques were utilized for this examination: 1. Automated exposure control. 2. Adjustment of the mA and/or kV according to patient size. 3. Use of iterative reconstruction technique. COMPARISON: 03/18/2020. FINDINGS: Lung windows through the visualized portions of the bases reveal no abnormality. Bone windows reveal no suspicious lesions. Wall thickening throughout the colon is consistent with colitis. There is no small bowel obstruction. There is no evidence of appendicitis. There is mild bladder wall thickening. The liver, gallbladder, pancreas, and adrenal glands are unremarkable. There are calcified granulomas in the spleen. Note is made of a retroaortic left renal vein. There are no pathologically enlarged lymph nodes. Changes of left partial nephrectomy are noted. 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 The right kidney is unremarkable. Mild stranding in the left upper quadrant is likely postprocedural. There is no drainable collection. IMPRESSION: 1. Findings consistent with diffuse colitis. Infectious etiologies are favored in this distribution. 2. Mild postprocedural changes in the left partial nephrectomy bed. No drainable collection. 3. Mild bladder wall thickening. Correlate with urinalysis. Electronically signed by: Dong Tejeda MD (06/23/2020 8:36 PM) [facility]
[2020-06-23 21:15] LABS: BILIRUBIN,URINE NEGATIVE (NEG); CLARITY,URINE CLEAR; COLOR,URINE YELLOW; NITRITE,URINE NEGATIVE (NEG); PROTEIN,URINE NEGATIVE (NEG-TRACE); UROBILINOGEN,URINE 0.2 mg/dL (0.2 mg/dL)
[2020-06-23 21:19] LABS: AMORPHOUS SEDIMENT,UR PRESENT /HPF; BACTERIA,URINE FEW /HPF (0-FEW); WBC,URINE 20-40 /HPF (0-4)
[2020-06-23] MEDS ORDERED: METR500T PO (21:38)
[2020-06-23] MEDS ORDERED: CIPR500T PO (21:38)
[2020-06-23] MEDS ORDERED: ONDA4TAB7 PO (21:38)
[2020-06-23] MEDS ORDERED: HYDR-3164 PO (21:38)
[2020-06-23 22:06] VITALS: BP 156/66
== END 2020-06-23 22:08 | disposition home or self-care (01) ==
LOC: ER 18:49
DX: K52.9 Noninfective gastroenteritis and colitis, unspecified (principal); R10.9 Unspecified abdominal pain; R11.0 Nausea; F41.9 Anxiety disorder, unspecified; I49.9 Cardiac arrhythmia, unspecified; I25.10 Atherosclerotic heart disease of native coronary artery without angina pectoris; Z90.89 Acquired absence of other organs; Z91.041 Radiographic dye allergy status
CPT/HCPCS: 36415; 74176; 80053; 81001; 83605; 83690; 85025; 87077; 87086; 87186; 96361; 96374; 96375; 99285; J2270; J2405; J7030

== ENCOUNTER → 2021-02-08 | Outpatient (CLI) | payer MEDICARE ==
[~2021-02-08] MED LIST changes: +CIPR500T2 PO; +GADOTERATE 7.5 MMOL/15ML VIAL. IVP ONE; +HYDR-3164 PO; -HYDR50TA6 PO; +HYDR50TA9 PO; +METR500T PO; +ONDA4TAB7 PO
--- NOTE | 2021-02-09 08:20 | RAD ---
MRA NECK WITHOUT AND WITH IV CONTRAST, MRA BRAIN WO 02/08/2021 1:33 PM INDICATION: Syncope COMPARISON: None available. TECHNIQUE: Noncontrast [id number] magnetic resonance angiography of the cervical vasculature and [place] was obtained. Postcontrast enhanced imaging of the cervical vasculature was obtaine d. Maximum intensity projection images are provided. Findings: NECK: Thoracic aorta is normal in caliber. A three-vessel aortic arch is identified. Origins of the brachyc ephalic vessels are normal. Motion artifact limits evaluation. Right common carotid artery is normal in course and caliber. There is no significant stenosis of the proximal right internal carotid artery at the right carotid bifurcation. Right external carotid arter y is normal in course and caliber. Left common carotid artery is normal in course and caliber. Mild plaque identified at the left caroti d bifurcation. There is no significant stenosis of the proximal left internal carotid artery at the c arotid bifurcation. Left external carotid artery is normal in course and caliber. Patent origin of the cervical vertebral arteries. Right vertebral artery is dominant. There is irregu larity of the left cervical vertebral artery as may be secondary to diminutive caliber versus atheros clerotic changes. At the [place]: Course and caliber of the intracranial internal carotid arteries is normal. Anterior cerebral arterie s are normal. Middle cerebral arteries and sylvian branches are normal in caliber. Basilar artery is normal in course and caliber. Superior cerebellar arteries, anterior inferior cereb ellar arteries and posterior inferior cerebellar arteries are normal. Large right posterior communica ting artery. Small left posterior communicating artery. Right P1 segment posterior cerebral artery is diminutive in caliber. There is mild irregularity of the right posterior cerebral arteries suggestiv e of intracranial atherosclerotic changes. There is no aneurysm, vascular malformation or high-grade stenosis/large vessel occlusion. Nonvascular findings: Ventricles, sulci and basal cisterns are normal in appearance. Visualized porti ons of the brain parenchyma and neck soft tissues are normal in appearance. IMPRESSION: 1. Patent [place] without evidence for aneurysm, vascular malformation or high-grade stenosi s/large vessel occlusion. Mild irregularity of the right posterior cerebral artery suggestive of intr acranial atherosclerotic changes. 2. No evidence for significant carotid stenosis. 3. Right vertebral artery is dominant. Left vertebral artery is diminutive in caliber, limiting evalu ation. Electronically signed by: Maddy Carreno MD (02/09/2021 8:18 AM) [id number]
--- NOTE | 2021-02-09 08:20 | RAD ---
MRA NECK WITHOUT AND WITH IV CONTRAST, MRA BRAIN WO 02/08/2021 1:33 PM INDICATION: Syncope COMPARISON: None available. TECHNIQUE: Noncontrast [id number] magnetic resonance angiography of the cervical vasculature and [place] was obtained. Postcontrast enhanced imaging of the cervical vasculature was obtaine d. Maximum intensity projection images are provided. Findings: NECK: Thoracic aorta is normal in caliber. A three-vessel aortic arch is identified. Origins of the brachyc ephalic vessels are normal. Motion artifact limits evaluation. Right common carotid artery is normal in course and caliber. There is no significant stenosis of the proximal right internal carotid artery at the right carotid bifurcation. Right external carotid arter y is normal in course and caliber. Left common carotid artery is normal in course and caliber. Mild plaque identified at the left caroti d bifurcation. There is no significant stenosis of the proximal left internal carotid artery at the c arotid bifurcation. Left external carotid artery is normal in course and caliber. Patent origin of the cervical vertebral arteries. Right vertebral artery is dominant. There is irregu larity of the left cervical vertebral artery as may be secondary to diminutive caliber versus atheros clerotic changes. At the [place]: Course and caliber of the intracranial internal carotid arteries is normal. Anterior cerebral arterie s are normal. Middle cerebral arteries and sylvian branches are normal in caliber. Basilar artery is normal in course and caliber. Superior cerebellar arteries, anterior inferior cereb ellar arteries and posterior inferior cerebellar arteries are normal. Large right posterior communica ting artery. Small left posterior communicating artery. Right P1 segment posterior cerebral artery is diminutive in caliber. There is mild irregularity of the right posterior cerebral arteries suggestiv e of intracranial atherosclerotic changes. There is no aneurysm, vascular malformation or high-grade stenosis/large vessel occlusion. Nonvascular findings: Ventricles, sulci and basal cisterns are normal in appearance. Visualized porti ons of the brain parenchyma and neck soft tissues are normal in appearance. IMPRESSION: 1. Patent [place] without evidence for aneurysm, vascular malformation or high-grade stenosi s/large vessel occlusion. Mild irregularity of the right posterior cerebral artery suggestive of intr acranial atherosclerotic changes. 2. No evidence for significant carotid stenosis. 3. Right vertebral artery is dominant. Left vertebral artery is diminutive in caliber, limiting evalu ation. Electronically signed by: Maddy Carreno MD (02/09/2021 8:18 AM) [id number]
== END ==
LOC: MRI 13:27
PROVIDERS: ATTEND Family Medicine
DX: R55 Syncope and collapse (principal)
CPT/HCPCS: 70544; 70549; A9575